=== PATIENT | female | born 1970 | race Caucasian/White ===

== ENCOUNTER 2023-01-09 17:34 | Emergency (ER) | payer BC ==
[~2023-01-09] VITALS: Ht 185.4 cm; Wt 105.2 kg
[2023-01-09 18:01] VITALS: BP 153/81; PULSE 82; RESP 20; TEMP 97.8; O2SAT 97
[2023-01-09] MEDS ORDERED: CEPH-588 PO (21:56)
[2023-01-09] MEDS ORDERED: cephALEXin 500 MG CAP PO ONE (22:00)
[2023-01-09] MEDS ORDERED: BACITRACIN OINT 500 UNITS/GM PKT TP ONE (22:29)
== END 2023-01-09 22:35 | disposition home or self-care (01) ==
LOC: MED 17:43
DX: S61.213A Laceration without foreign body of left middle finger without damage to nail, initial encounter (principal); L03.012 Cellulitis of left finger; X58.XXXA Exposure to other specified factors, initial encounter; Y93.89 Activity, other specified; Y92.89 Other specified places as the place of occurrence of the external cause; Y99.8 Other external cause status
CPT/HCPCS: 73130; 90471; 90715; 99283